=== PATIENT | male | born 1990 | race Caucasian/White ===

== ENCOUNTER 2017-02-08 18:44 | Emergency (ER) | payer MEDICAID ==
[2017-02-08 19:13] VITALS: BP 148/106; PULSE 77; RESP 16; TEMP 98.3; O2SAT 98
== END 2017-02-08 19:09 | disposition left against medical advice (07) ==
LOC: C.ER 18:44
DX: Z02.89 Encounter for other administrative examinations (principal); M54.9 Dorsalgia, unspecified